=== PATIENT | male | born 1950 ===

== ENCOUNTER → 2018-02-27 | Outpatient (CLI) | payer MEDICARE ==
[~2018-02-27] MED LIST: ASPI-621 PO; BACL-19 PO; CARV3.1212 PO; CEFD300C37 PO; FURO20TA3 PO; FURO40TA6 PO; HYDR-3237 PO; HYDR-879 PO; LISI5TAB7 PO; LOSA25TA2 PO; METO25TA35 PO; METR500T PO; POLY17PO5 PO; POTA10TA5 PO; TRAZ-136 PO; TRAZ150T62
== END | disposition home or self-care (01) ==
LOC: CFH 07:43
PROVIDERS: ATTEND Family Medicine
DX: I08.3 Combined rheumatic disorders of mitral, aortic and tricuspid valves (principal); I50.9 Heart failure, unspecified; I31.3 Pericardial effusion (noninflammatory); F17.210 Nicotine dependence, cigarettes, uncomplicated
CPT/HCPCS: 93306

== ENCOUNTER 2018-12-21 07:26 | Emergency (ER) | payer MEDICARE ==
[~2018-12-21] VITALS: Ht 180.3 cm; Wt 86.0 kg
[~2018-12-21 07:26] MED LIST changes: +AMIO200T42 PO; -ASPI-621 PO; +ASPI81TA45 PO; +ATOR-2 PO; +HYDR-3622 PO; -HYDR-879 PO; +POTA20PA25 PO; +RIVA20TA PO; -TRAZ-136 PO; +TRAZ50TA66 PO
--- NOTE | 2018-12-21 08:15 | NUR ---
PT WHEELED TO ROOM ON HIS WHEELCHAIR. IN [place] RESTING. NADN. DENIES PAIN. STATES HIS SCORTUM IS SWOLLEN AND HE IS WORRIED HE MAY HAVE A UTI. MD AT BEDSIDE. RING CATHETER CHANGED PER MD ORDER AFTER UA SAMPLE TAKEN. CALL LIGHT IN REACH.
[2018-12-21 08:19] LABS: CULTURE INDICATED? YES; MICROSCOPIC INDICATED
[2018-12-21 08:22] LABS: MEAN CORPUSCULAR HEMOGLOBIN 28.8 pg (27.5-34.5); MEAN CORPUSCULAR HGB CONC 32.6 g/dL (33.2-36.2); MEAN CORPUSCULAR VOLUME 88.3 fL (81-97); MEAN PLATELET VOLUME 6.2 fL (7.4-10.4); PLATELET COUNT 237 x10^3/uL (130-400); RED CELL DISTRIBUTION WIDTH 14.7 % (9.4-14.8)
[2018-12-21 08:33] LABS: ANION GAP 4 mmol/L (5-15); CALCIUM 8.5 mg/dL (8.5-10.1); CHLORIDE 106 mmol/L (98-107); CREATININE 0.71 mg/dL (0.7-1.3)
[2018-12-21 08:43] LABS: BASOPHILS # (AUTO) 0.01 x10^3/uL (0-0.1); BASOPHILS % (AUTO) 0 % (0-1); EOSINOPHILS # (AUTO) 0.07 x10^3/uL (0-0.4); EOSINOPHILS % (AUTO) 1 % (1-7); LYMPHOCYTES # (AUTO) 0.98 x10^3/uL (1-3.4); LYMPHOCYTES % (AUTO) 12 % (22-44); MD SCAN; MONOCYTES # (AUTO) 0.36 x10^3/uL (0.2-0.8); MONOCYTES % (AUTO) 4 % (2-9); NEUTROPHILS # (AUTO) 6.92 x10^3/uL (1.8-6.8); NEUTROPHILS % (AUTO) 83 % (42-75)
--- NOTE | 2018-12-21 09:14 | NUR ---
US COMPLETED. PT RESTING ON [place]. DENIES NEEDS. NADN. VSS. CALL LIGHT IN REACH.
[2018-12-21] MEDS ORDERED: CEFTRIAXONE 1,000 MG IM ONE (09:30)
[2018-12-21 09:56] VITALS: BP 129/78
--- NOTE | 2018-12-21 09:56 | NUR ---
MEDICATED PER EMAR. WILL MONITOR PT FOR 15 MIN BEFORE D/C
== END 2018-12-21 10:21 | disposition home or self-care (01) ==
LOC: ED 09:38
DX: T83.511A Infection and inflammatory reaction due to indwelling urethral catheter, initial encounter (principal); N45.2 Orchitis; N45.1 Epididymitis; I11.0 Hypertensive heart disease with heart failure; I50.9 Heart failure, unspecified; F17.200 Nicotine dependence, unspecified, uncomplicated
CPT/HCPCS: 36415; 51702; 76870; 80048; 81001; 85025; 87077; 87086; 93975; 96372; 99284; J0696; 87186

== ENCOUNTER 2019-01-15 08:53 | Outpatient (CLI) | payer MEDICARE | END 2019-01-15 23:59 | disposition home or self-care (01) | LOC: CFH 08:53 | PROVIDERS: ATTEND Internal Medicine Cardiovascular Disease | DX: I08.3 Combined rheumatic disorders of mitral, aortic and tricuspid valves (principal); I11.0 Hypertensive heart disease with heart failure; I50.9 Heart failure, unspecified; I42.9 Cardiomyopathy, unspecified | CPT/HCPCS: 93306 ==

== ENCOUNTER 2019-02-17 07:54 | Emergency (ER) | payer MEDICARE ==
[~2019-02-17] VITALS: Ht 180.3 cm; Wt 88.0 kg
[2019-02-17 07:58] VITALS: BP 145/86
== END 2019-02-17 08:48 | disposition home or self-care (01) ==
LOC: ED 08:42
DX: T83.038A Leakage of other urinary catheter, initial encounter (principal); I11.0 Hypertensive heart disease with heart failure; I50.9 Heart failure, unspecified
CPT/HCPCS: 99284

== ENCOUNTER → 2019-06-11 | Outpatient (CLI) | payer MEDICARE | END | disposition home or self-care (01) | LOC: CFH 13:13 | PROVIDERS: ATTEND Internal Medicine Cardiovascular Disease | DX: I08.3 Combined rheumatic disorders of mitral, aortic and tricuspid valves (principal); J90 Pleural effusion, not elsewhere classified; I11.0 Hypertensive heart disease with heart failure; I50.9 Heart failure, unspecified; I42.9 Cardiomyopathy, unspecified; I48.91 Unspecified atrial fibrillation; Z87.891 Personal history of nicotine dependence; Z86.73 Personal history of transient ischemic attack (TIA), and cerebral infarction without residual deficits; Z79.01 Long term (current) use of anticoagulants | CPT/HCPCS: 71046; 93306 ==

== ENCOUNTER → 2019-06-12 | Outpatient (CLI) | payer MEDICARE ==
[2019-06-12 12:50] LABS: MEAN CORPUSCULAR HEMOGLOBIN 28.9 pg (27.5-34.5); MEAN CORPUSCULAR HGB CONC 32.4 g/dL (33.2-36.2); MEAN CORPUSCULAR VOLUME 89.2 fL (81-97); MEAN PLATELET VOLUME 8.2 fL (7.4-10.4); PLATELET COUNT 157 x10^3/uL (130-400); RED BLOOD COUNT 5.52 x10^6/uL (4.38-5.82); RED CELL DISTRIBUTION WIDTH 15.5 % (9.4-14.8)
[2019-06-12 13:16] LABS: ALBUMIN 3.6 g/dL (3.4-5.0); CALCIUM 8.6 mg/dL (8.5-10.1); CHLORIDE 107 mmol/L (98-107)
[2019-06-12 13:23] LABS: ALANINE AMINOTRANSFERASE 22 U/L (12-78); ALKALINE PHOSPHATASE 79 U/L (45-117); ANION GAP 6 mmol/L (5-15); BILIRUBIN,TOTAL 1.5 mg/dL (0.2-1.0); CHOL/HDL RATIO 5.7; CHOLESTEROL, TOTAL 142 mg/dL (140-239); CREATININE 0.84 mg/dL (0.7-1.3); HDL CHOL % 18 % (26-37); HDL CHOLESTEROL (DIRECT) 25 mg/dL (40-60); LDL CHOLESTEROL,CALCULATED 77 mg/dL (54-169); LDL/HDL RATIO 3.1 (0.5-3.0); TOTAL PROTEIN 8.4 g/dL (6.4-8.2); TRIGLYCERIDES 202 mg/dL (50-200); VLDL CHOLESTEROL 40 mg/dL (0-25)
== END | disposition home or self-care (01) ==
LOC: CFH 09:07
PROVIDERS: ATTEND Internal Medicine Cardiovascular Disease
DX: I48.91 Unspecified atrial fibrillation (principal); I42.9 Cardiomyopathy, unspecified; I63.9 Cerebral infarction, unspecified; Z79.01 Long term (current) use of anticoagulants
CPT/HCPCS: 36415; 80053; 80061; 85027

== ENCOUNTER 2019-07-04 08:47 | Outpatient (CLI) | payer MEDICARE, OTHER ==
[2019-07-04 13:04] LABS: INTERNATIONAL NORMALIZED RATIO 3.06 (0.93-1.1); PROTHROMBIN TIME 30.8 Seconds (9.6-11.5)
== END 2019-07-04 23:59 | disposition home or self-care (01) ==
LOC: CFH 08:47
PROVIDERS: ATTEND Internal Medicine Cardiovascular Disease
DX: Z79.01 Long term (current) use of anticoagulants (principal)
CPT/HCPCS: 36415; 85610

== ENCOUNTER 2019-09-08 10:05 | Outpatient (CLI) | payer MEDICARE, OTHER ==
[2019-09-08 13:10] LABS: INTERNATIONAL NORMALIZED RATIO 1.11 (0.93-1.1); PROTHROMBIN TIME 11.8 Seconds (9.6-11.5)
== END 2019-09-08 23:59 | disposition home or self-care (01) ==
LOC: CFH 10:05
PROVIDERS: ATTEND Internal Medicine Cardiovascular Disease
DX: Z79.01 Long term (current) use of anticoagulants (principal)
CPT/HCPCS: 36415; 85610

== ENCOUNTER 2020-03-15 10:09 | Observation (INO) | payer OTHER ==
[~2020-03-15] VITALS: Ht 180.3 cm; Wt 97.8 kg
[2020-03-15 10:46] LABS: BASOPHILS # (AUTO) 0.07 x10^3/uL (0-0.1); BASOPHILS % (AUTO) 2 % (0-1); EOSINOPHILS # (AUTO) 0.05 x10^3/uL (0-0.4); EOSINOPHILS % (AUTO) 1 % (1-7); LYMPHOCYTES # (AUTO) 1.06 x10^3/uL (1-3.4); LYMPHOCYTES % (AUTO) 29 % (22-44); MD NO; MEAN CORPUSCULAR HEMOGLOBIN 26.3 pg (27.5-34.5); MEAN CORPUSCULAR HGB CONC 31.7 g/dL (33.2-36.2); MEAN CORPUSCULAR VOLUME 82.7 fL (81-97); MEAN PLATELET VOLUME 8.5 fL (7.4-10.4); MONOCYTES # (AUTO) 0.24 x10^3/uL (0.2-0.8); MONOCYTES % (AUTO) 7 % (2-9); NEUTROPHILS # (AUTO) 2.19 x10^3/uL (1.8-6.8); NEUTROPHILS % (AUTO) 61 % (42-75); PLATELET COUNT 136 x10^3/uL (130-400); RED BLOOD COUNT 6.38 x10^6/uL (4.38-5.82); RED CELL DISTRIBUTION WIDTH 16.8 % (9.4-14.8)
[2020-03-15 10:58] LABS: ALANINE AMINOTRANSFERASE 16 U/L (12-78); ALBUMIN 3.6 g/dL (3.4-5.0); ANION GAP 5 mmol/L (5-15); CALCIUM 8.9 mg/dL (8.5-10.1); CHLORIDE 109 mmol/L (98-107); CREATININE 0.99 mg/dL (0.7-1.3)
[2020-03-15 11:02] LABS: ALKALINE PHOSPHATASE 69 U/L (45-117); BILIRUBIN,TOTAL 3.3 mg/dL (0.2-1.0); TOTAL PROTEIN 8.3 g/dL (6.4-8.2); TROPONIN I 0.017 ng/mL (0.000-0.045)
--- NOTE | 2020-03-15 11:27 | NUR ---
MANAGER LPN: PT TO ROOM VIA WHEELCHAIR AT THIS TIME. DARWIN
--- NOTE | 2020-03-15 11:30 | NUR ---
"I THINK I HAVE FLUID AROUND MY LUNGS" "SOB, CAN'T TAKE A DEEP BREATH, I FEEL PRESSURE IN MY STOMACH" REPORT HX THORACENTESIS WITH NO FORMAL DX "THEY DRAINED A BUNCH OF FLUID BUT DIDN'T SAY I HAVE CANCER OR LIVER PROBLEMS." DENIES ETOH NO COVID SYMPTOMS BEDSIDE SOB
--- NOTE | 2020-03-15 11:50 | NUR ---
PATIENT MOVED TO ROOM 36 LAB AT BEDSIDE- BLOOD CULTURE X 1/LACTATE DRAWN
--- NOTE | 2020-03-15 12:39 | NUR ---
PIV PLACED FROM WHICH 2ND BLOOD CULTURE DRAWN PLACED ON 2L NC FOR SOB BLOOD WORK/CXR REVIEWED PROVIDER TO BEDSIDE-PLAN TO OBTAIN CT
[2020-03-15] MEDS ORDERED: LIDOCAINE 1%, 10ML ONE (12:57)
[2020-03-15] MEDS ORDERED: FUROSEMIDE 40 MG/4 ML IV ONE (13:00)
[2020-03-15] MEDS ORDERED: FUROSEMIDE 40 MG/4 ML ONE (13:04)
--- NOTE | 2020-03-15 13:32 | NUR ---
IR CALLED TO CLARIFY SCHEDULE (WHEN HE ABLE TO GO TO IR). GAME AUTHOR REPORTS ROOM WILL BE READY IN 20 MINUTES PROVIDER ASKED IN LASIX ADMIN COULD BE DEFERRED TO POST PROCEDURE TO AVOID URGENT NEED TO URINATE WHILE IN STERILE PROCEDURE. DR. FRANCO AGREEABLE PATIENT UPDATED ON ESTIMATED POC
--- NOTE | 2020-03-15 14:26 | NUR ---
PATIENT BROUGHT BACK TO ROOM FROM IR. TECH REPORTS "THERE WAS NOTHING TO DRAIN."
[2020-03-15] MEDS ORDERED: OMNIPAQUE 350 MG/ML, 100ML BOTTLE ONE (14:27)
[2020-03-15] MEDS ORDERED: TRAZODONE (15:08)
[2020-03-15] MEDS ORDERED: ASPI-515 PO (15:09)
--- NOTE | 2020-03-15 15:19 | NUR ---
ASSUMED CARE OF PATIENT. NO ACUTE DISTRESS NOTED. VS STABLE. PT GIVEN A URINAL. CALL LIGHT IN PLACE. WILL CONTINUE TO MONITOR.
--- NOTE | 2020-03-15 15:20 | NUR ---
REPORT TO ART ARCHER. PATIENT HAS NOT VOIDED YET (POST LASIX ADMIN)
--- NOTE | 2020-03-15 15:41 | NUR ---
REPORT CALLED INTO [facility]
[2020-03-15 16:02] VITALS: BP 138/95
[2020-03-15] MEDS ORDERED: morphine SULFATE 10 MG/ML, 1ML IVPush PRN (16:30)
[2020-03-15] MEDS ORDERED: ONDANSETRON 2MG/ML, 2ML IVPush PRN (16:30)
[2020-03-15] MEDS ORDERED: ACETAMINOPHEN 325 MG TABLET PO PRN (16:30)
[2020-03-15] MEDS ORDERED: ENALAPRILAT 1.25 MG/ML, 2ML IVPush PRN (16:30)
[2020-03-15] MEDS ORDERED: ONDANSETRON ODT 4 MG PO PRN (16:30)
[2020-03-15] MEDS ORDERED: MELATONIN 5 MG TABLET PO PRN (16:30)
[2020-03-15] MEDS: LISINOPRIL 5 MG TABLET PO SCH (17:11)
[2020-03-15 18:13] VITALS: BP 136/88
[2020-03-15] MEDS: CARVEDILOL 3.125 MG TABLET PO SCH (18:14)
[2020-03-15 19:48] VITALS: BP 119/79
[2020-03-15] MEDS ORDERED: ATORVASTATIN 40 MG TABLET PO SCH (21:00)
[2020-03-16 01:27] VITALS: BP 134/86
[2020-03-16 05:15] LABS: BASOPHILS # (AUTO) 0.05 x10^3/uL (0-0.1); BASOPHILS % (AUTO) 1 % (0-1); EOSINOPHILS % (AUTO) 3 % (1-7); LYMPHOCYTES # (AUTO) 1.15 x10^3/uL (1-3.4); LYMPHOCYTES % (AUTO) 30 % (22-44); MD NO; MEAN CORPUSCULAR HEMOGLOBIN 26.2 pg (27.5-34.5); MEAN CORPUSCULAR HGB CONC 31.8 g/dL (33.2-36.2); MEAN CORPUSCULAR VOLUME 82.4 fL (81-97); MEAN PLATELET VOLUME 8.4 fL (7.4-10.4); MONOCYTES # (AUTO) 0.37 x10^3/uL (0.2-0.8); MONOCYTES % (AUTO) 10 % (2-9); NEUTROPHILS # (AUTO) 2.16 x10^3/uL (1.8-6.8); NEUTROPHILS % (AUTO) 56 % (42-75); PLATELET COUNT 129 x10^3/uL (130-400); RED CELL DISTRIBUTION WIDTH 16.2 % (9.4-14.8)
[2020-03-16 05:22] LABS: ANION GAP 6 mmol/L (5-15); CALCIUM 8.6 mg/dL (8.5-10.1); CHLORIDE 110 mmol/L (98-107); CHOLESTEROL, TOTAL 99 mg/dL (140-239); CREATININE 0.94 mg/dL (0.7-1.3); TRIGLYCERIDES 109 mg/dL (50-200); VLDL CHOLESTEROL 22 mg/dL (0-25)
[2020-03-16 05:25] LABS: CHOL/HDL RATIO 4.5; HDL CHOL % 22 % (26-37); HDL CHOLESTEROL (DIRECT) 22 mg/dL (40-60); LDL CHOLESTEROL,CALCULATED 55 mg/dL (54-169); LDL/HDL RATIO 2.5 (0.5-3.0)
[2020-03-16 05:51] VITALS: BP 121/79
[2020-03-16] MEDS: CARVEDILOL 3.125 MG TABLET PO SCH (05:53)
[2020-03-16] MEDS ORDERED: ASPIRIN 81 MG TABLET EC PO SCH ×2 (06:00)
[2020-03-16 08:00] VITALS: BP 128/76
[2020-03-16] MEDS: LISINOPRIL 5 MG TABLET PO SCH (08:51)
[2020-03-16] MEDS ORDERED: POTASSIUM CHLORIDE 20 MEQ TAB.ER.PRT PO SCH (09:00)
[2020-03-16] MEDS ORDERED: FUROSEMIDE 40 MG/4 ML IV SCH (09:00)
[2020-03-16] MEDS ORDERED: LISI5TAB7 PO (13:23)
[2020-03-16] MEDS ORDERED: ATOR40TA78 PO (13:23)
[2020-03-16] MEDS ORDERED: CARV3.1212 PO (13:23)
[2020-03-16] MEDS ORDERED: SPIR25TA5 PO (15:11)
[2020-03-16 15:19] VITALS: BP 112/78
== END 2020-03-16 17:10 | disposition home or self-care (01) ==
LOC: ED 11:40 → EDIP 14:38 → INTOOBSV 14:38 → SUATTDRO 16:15 → 5SO 16:36
PROVIDERS: ADMIT Hospitalist; ATTEND Hospitalist
DX: I11.0 Hypertensive heart disease with heart failure (principal); I50.23 Acute on chronic systolic (congestive) heart failure; I63.40 Cerebral infarction due to embolism of unspecified cerebral artery; I48.0 Paroxysmal atrial fibrillation; K74.60 Unspecified cirrhosis of liver; B19.20 Unspecified viral hepatitis C without hepatic coma; E66.9 Obesity, unspecified; F17.200 Nicotine dependence, unspecified, uncomplicated; I08.1 Rheumatic disorders of both mitral and tricuspid valves; G43.909 Migraine, unspecified, not intractable, without status migrainosus; K86.1 Other chronic pancreatitis; E80.6 Other disorders of bilirubin metabolism; R60.9 Edema, unspecified; G89.29 Other chronic pain; M54.2 Cervicalgia; M54.9 Dorsalgia, unspecified; J90 Pleural effusion, not elsewhere classified; I27.20 Pulmonary hypertension, unspecified; Z91.19 Patient's noncompliance with other medical treatment and regimen; Z87.09 Personal history of other diseases of the respiratory system; Z86.73 Personal history of transient ischemic attack (TIA), and cerebral infarction without residual deficits; Z79.899 Other long term (current) drug therapy; Z79.82 Long term (current) use of aspirin
CPT/HCPCS: 36415; 49083; 71045; 71260; 74177; 80048; 80053; 80061; 83605; 83880; 84145; 84484; 85025; 87040; 93005; 96374; 96376; 99285; C8929; G0378; J1940; Q9957; Q9967

== ENCOUNTER → 2020-07-20 | Outpatient (CLI) | payer MEDICARE ==
[~2020-07-20] MED LIST changes: +ASPI-515 PO; +ATOR40TA78 PO; +SPIR25TA5 PO; +TRAZODONE
== END | disposition home or self-care (01) ==
LOC: CVU 12:24
PROVIDERS: ATTEND Internal Medicine Cardiovascular Disease
DX: I08.3 Combined rheumatic disorders of mitral, aortic and tricuspid valves (principal); I50.9 Heart failure, unspecified; Z79.01 Long term (current) use of anticoagulants; Z86.73 Personal history of transient ischemic attack (TIA), and cerebral infarction without residual deficits; F17.200 Nicotine dependence, unspecified, uncomplicated
CPT/HCPCS: 93306